=== PATIENT | female | born 1970 | race Caucasian/White ===

== ENCOUNTER 2018-02-05 19:49 | Emergency (ER) | payer OTHER, SELFPAY ==
[2018-02-05 19:50] VITALS: BP 143/81; PULSE 69; RESP 15; TEMP 36.4; O2SAT 96; BMI 32.3
--- NOTE | 2018-02-05 19:57 | EKG12_ITS ---
Test Reason : CP Blood Pressure : / mmHG Vent. Rate : 074 BPM Atrial Rate : 074 BPM P-R Int : 170 ms QRS Dur : 092 ms QT Int : 424 ms P-R-T Axes : 033 043 028 degrees QTc Int : 470 ms Poor data quality, interpretation may be adversely affected Sinus rhythm with sinus arrhythmia with occasional Premature ventricular complexes Possible Left atrial enlargement Low voltage QRS Borderline ECG Confirmed by KELLY NARANJO ([id number]), technical editor LEIF STEWART ([id number]) on 02/09/2018 2:23:00 PM Referred By: VALDO Confirmed By:KELLY NARANJO
--- NOTE | 2018-02-05 20:00 | ED.RN ---
NO OLD EKGS IN MUSE.
--- NOTE | 2018-02-05 20:17 | ED.DCSUM_ITS ---
- ER Visit Summary Date of Service: 02/05/18 Chief Complaint: Constant chest pain History of Present Illness: The patient is a 47 F history of reflux he is basically had constant chest pain for 2 weeks. Midsternal. No radiation. Worse is supine. Worse with eating. Not specifically associated with exertion. Over the last year she has put on about 25 pounds but has had normal thyroid test. She denies any cardiac history. No family history of cardiac disease. She is a non-smoker. Prior history of DVT or PE. No recent travel, surgery, mobilization. No leg pain or swelling. No hemoptysis. The chest pain is not pleuritic. Physical Examination: Well-appearing middle-age female. Vital signs are stable and afebrile. She does not look septic or toxic. She is in no acute distress. Her pulse ox is 96% on room air no hypoxia. H EENT exam unremarkable. Neck nontender no lymphadenopathy. No thyromegaly. Lungs clear to auscultation bilaterally. Heart regular rate and rhythm no murmur rate about 70. Chest wall nontender. Abdomen soft and nontender. Normal bowel sounds no peritoneal signs. She is moving all 4 extremities. They are neurovascularly intact. Calves are nontender without edema or cords. She is equal and symmetrical radial pulses. Back nontender. Neurologic exam normal. No focal motor deficits. Test Results: Portable chest x-ray 1 view shows normal cardiac silhouette and mediastinum. I went over this with patient. EKG normal sinus rhythm rate is 74 with some intermittent PVCs. No signs of [place] or ischemia. White count 8. Hemoglobin of 14. Electrolites unremarkable gap of 9 and creatinine of 0.8. Troponin is normal. Emergency Department Course and Treatment: She will undergo cardiac workup. Clinically with this being constant pain for 2 or supine with food I think is more likely associated with reflux. She will also be treated with a GI cocktail and Pepcid. Repeat exam at 2104 she is doing well. Feels much better to the medication. In light that her pain has been constant for 2 weeks associated with lengths of wine and eating with a completely normal EKG and troponin I do feel this is secondary to being reflux and noncardiac disease. She is low risk because she is a non-smoker and has no family history. She is not diabetic. Treatment Plan: Discharge home. Nexium for reflux. Disposition: Discharge Impression: Acute chest pain secondary to reflux This note was generated with [employer] dictation software. It may contain incorrect words, spelling, and punctuation that were not noted in review of the chart prior to signing ED Disposition - Plan for ED Patient: Chief Complaint: Chest Pain Referrals: Melvin Moses MD [Primary Care Provider] -
[2018-02-05] MEDS: Famotidine 20 MG Tablet 40 MG PO (20:25)
[2018-02-05] MEDS: Mag Hydrox/Al Hydrox/Simeth 30 ML UDC PO (20:25)
[2018-02-05 20:39] LABS: Absolute Lymphocyte Count 3.17 X10^3/ul (0.83-4.51); Absolute Neutrophil Count 4.2 X10^3/uL (2.0-7.7); Basophil# 0.03 X10^3/uL; Basophil% 0.4 % (0-1); Eosinophil# 0.08 X10^3/uL; Hematocrit 42.1 % (37-47); Hemoglobin 14.4 g/dl (12.0-15.0); Lymphocyte # 3.17 X10^3/ul (4.0); Lymphocyte % 38.7 % (19-41); Mean Corp Hgb Conc 34.2 g/gl (32-36); Mean Corpuscular Hgb 29.6 pg (27.0-32.0); Mean Corpuscular Volume 86.6 fL (81-99); Mean Platelet Vol. 11.7 fl (6.2-12.0); Monocyte# 0.68 X10^3/uL; Monocyte% 8.3 % (0-10); Neutrophil # 4.21 X10^3/uL (2.7-7.7); Neutrophil % 51.4 % (47-70); Platelet Count 224 K/mm3 (150-450); RBC Distribution Width SD 40.3 fl (35.1-43.9); Red Blood Count 4.86 M/mm3 (4.2-5.4); White Blood Count 8.2 K/mm3 (4.4-11.0)
[2018-02-05 20:41] LABS: POSITIVE COUNT NO; POSITIVE DIFFERENTIAL NO; POSITIVE MORPHOLOGY NO
[2018-02-05 20:54] LABS: Anion Gap 9 (5-15); BUN 14 mg/dL (7-18); BUN/Creat Ratio 16.9 RATIO (10-20); Calcium,Total 9.3 mg/dL (8.5-10.1); Chloride 105 mmol/L (98-107); Creatinine, Serum 0.83 mg/dL (0.55-1.02); EST Glomerular Filtration Rate 78 mL/min (>60); Est Glom Filt Rate - Afr Amer 94 mL/min (>60); Glucose 82 mg/dL (74-106); Potassium 3.4 mmol/L (3.5-5.1); Sodium Level 143 mmol/L (136-145)
[2018-02-05 21:06] VITALS: BP 127/86; PULSE 77; RESP 15; O2SAT 99
--- NOTE | 2018-02-05 21:17 | ED.DEP ---
ED Disposition - Plan for ED Patient: Disposition: Home or Assisted Living Chief Complaint: Chest Pain Instructions: ED GERD Prescriptions: Esomeprazole Mag Trihydrate [Nexium] 40 mg PO DAILY #30 cap Referrals: Melvin Moses MD [Primary Care Provider] - 1-2 Weeks Additional Instructions: History and labs and EKG all consistent with this being secondary to reflux. Your labs, EKG, chest x-ray and heart enzymes are all normal. Nexium 1 pill per day. Elevate head of bed. Do not eat with an 4 hours at bedtime. Follow-up with your doctor.
[2018-02-05 22:10] VITALS: BP 127/86; PULSE 63; RESP 16; O2SAT 95
== END 2018-02-05 22:11 | disposition home or self-care (01) ==
PROVIDERS: Emergency Provider Emergency Medicine; Family Provider Family Medicine; PCP Family Medicine
DX: K21.9 Gastro-esophageal reflux disease without esophagitis (principal); R07.9 Chest pain, unspecified; I49.3 Ventricular premature depolarization
CPT/HCPCS: 71045; 80048; 84484; 85025; 93005; 99284; A4216

== ENCOUNTER 2019-02-03 19:16 | Observation (INO) | payer OTHER, SELFPAY ==
[2019-02-03] VITALS (10 sets, daily range): BP systolic 107–165; BP diastolic 69–95; PULSE 47–90; RESP 14–18; TEMP 36.2–37.3; O2SAT 95–99; BMI 32.2; BMI 31.2
--- NOTE | 2019-02-03 14:00 | US_ITS ---
STUDY: ABDOMINAL ULTRASOUND - RIGHT UPPER QUADRANT REASON FOR VISIT: Female, 48 years old. Abdominal pain. TECHNIQUE: Ultrasound evaluation of the right upper quadrant was performed with real-time and static foster-scale imaging. TECHNICAL QUALITY: Adequate. COMPARISON: Comparison is made with prior CT scan abdomen pelvis done earlier in the day. FINDINGS: Liver: The liver measures 17.2 cm. There is increased echogenicity consistent with fatty infiltration. The bile ducts are within normal limits. There is hepatic color flow. The direction of portal flow is hepatopetal. There is no demonstrated mass lesion. Gallbladder: There is a contracted gallbladder. The gallbladder wall is thickened and measures 7.1 mm. There is a negative sonographic Dejesus's sign. There is no pericholecystic fluid. There are multiple echogenic structures within the gallbladder, consistent with multiple gallstones. Common Bile Duct (C.B.D.): The common bile duct measures 4.0 mm. Pancreas: There is nonvisualization of the pancreas due to overlying bowel gas. Right Kidney: Normal size of the right kidney. The right kidney measures 11.2 cm x 4.0 cm x 6.4 cm. Normal renal cortex. The right cortex measures 2.1 cm. There is no demonstrated renal mass or cyst. Dilatation of the right renal pelvis. US/Gallbladder IMPRESSION: There is a contracted stone filled gallbladder. Mild fatty infiltration of the liver. Electronically Signed: James Wan, at 15:30 EDT , Service support ,
--- NOTE | 2019-02-03 14:00 | CT_ITS ---
STUDY: CT ABDOMEN AND PELVIS WITHOUT CONTRAST REASON FOR EXAM: Female, 48 years old. Intermittent epigastric pain. RADIATION DOSAGE (If Supplied By Facility): CTDIvol = ( 15.28 ) mGy, DLP = ( 885.75 ) mGycm TECHNIQUE: Transaxial images were obtained from the dome of the diaphragm to the symphysis pubis without oral contrast, and without intravenous contrast. Sagittal and coronal images were reconstructed. Individualized dose optimization techniques were used for this CT. COMPARISON: None. FINDINGS: Minimal degree of dependent bibasilar atelectasis. The visualized portions of the heart are within normal limits. Normal liver. There are multiple small gallstones. Normal spleen. Normal pancreas. Normal bilateral adrenal glands. Mild degree of the right hydronephrosis. Normal left kidney. Normal visualized stomach. Normal small intestine. Normal colon. The appendix is visualized and appears normal. Normal abdominal aorta. Normal inferior vena cava. Normal retroperitoneum. Normal urinary bladder. Enlargement of the uterus. Normal abdominal wall. Normal osseous structures. CT/Abdomen/Pelvis without Cont IMPRESSION: Multiple small gallstones. Uterine enlargement. Electronically Signed: James Wan, at 15:04 EDT , Service support ,
[2019-02-03] MEDS: Ondansetron 4 MG/2 ML Vial IV (14:09)
[2019-02-03] MEDS: Famotidine 20 MG Tablet 40 MG PO (14:09)
[2019-02-03] MEDS: 0.9% Normal Saline 1,000 ML 1000 ML IV (14:09)
[2019-02-03 14:18] LABS: Absolute Lymphocyte Count 1.38 X10^3/uL (0.83-4.51); Absolute Neutrophil Count 6.1 X10^3/uL (2.0-7.7); Basophil# 0.03 X10^3/uL; Basophil% 0.4 % (0-1); Eosinophil# 0.03 X10^3/uL; Eosinophils% 0.4 % (0-5); Hematocrit 40.7 % (37-47); Hemoglobin 13.6 g/dL (12.0-15.0); Lymphocyte # 1.38 X10^3/ul (4.0); Lymphocyte % 16.8 % (19-41); Mean Corp Hgb Conc 33.4 g/dL (32-36); Mean Corpuscular Volume 86.8 fL (81-99); Mean Platelet Vol. 11.9 fl (6.2-12.0); Monocyte# 0.66 X10^3/uL; NRBC Flagged by Analyzer 0 % (0-5); Neutrophil # 6.09 X10^3/uL (2.7-7.7); Neutrophil % 74.2 % (47-70); Platelet Count 215 K/mm3 (150-450); RBC Distribution Width CV 14.9 % (11.6-14.6); RBC Distribution Width SD 46.7 fl (35.1-43.9); Red Blood Count 4.69 M/mm3 (4.2-5.4); White Blood Count 8.2 K/mm3 (4.4-11.0)
[2019-02-03 14:32] LABS: ALB/GLOB Ratio 0.9 RATIO (0.9-2.4); AST(SGOT) 224 U/L (15-37); Alanine Aminotransfer ALT/SGPT 511 U/L (13-56); Albumin, Serum 3.5 g/dL (3.2-5.0); Alkaline Phosphatase 288 U/L (45-117); Anion Gap 4 (5-15); BUN 9 mg/dL (7-18); BUN/Creat Ratio 11.4 RATIO (10-20); Calcium,Total 9.9 mg/dL (8.5-10.1); Chloride 105 mmol/L (98-107); Creatinine, Serum 0.79 mg/dL (0.55-1.02); EST Glomerular Filtration Rate 82 mL/min (>60); Est Glom Filt Rate - Afr Amer 100 mL/min (>60); Estimated Creatinine Clearance 80.64 ml/min; Globulin 4.1 g/dL (2.2-4.2); Glucose 102 mg/dL (74-106); Lipase 309 U/L (73-393); Potassium 3.6 mmol/L (3.5-5.1); Protein, Total 7.6 g/dL (6.4-8.2); Sodium Level 139 mmol/L (136-145)
--- NOTE | 2019-02-03 16:18 | RAD_ITS ---
STUDY: INTRAOPERATIVE CHOLANGIOGRAM. REASON FOR EXAM: Female, 48 years old. Laparoscopic cholecystectomy. FLUOROSCOPY TIME (if supplied): (0:16) minutes/seconds. A cine loop was recorded. TECHNIQUE: An intraoperative cholangiogram was performed by the surgeon. Imaging was submitted. COMPARISON: None. FINDINGS: The intrahepatic and extra hepatic biliary ducts are not dilated. No intraluminal filling defect is seen. There is free flow of contrast into the duodenum. RAD/Cholangiogram/ O R,Initial IMPRESSION: Unremarkable intraoperative cholangiogram. Electronically Signed: James Wan, at 8:57 EDT , Service support ,
--- NOTE | 2019-02-03 16:22 | PCM.HP.STD ---
Problem List (1) Cholelithiasis Status: Acute Qualifiers: Cholelithiasis location: gallbladder Cholecystitis presence: with cholecystitis Cholecystitis acuity: acute and chronic Biliary obstruction: with biliary obstruction Qualified Code(s): K80.13 - Calculus of gallbladder with acute and chronic cholecystitis with obstruction (2) Obstructive jaundice Status: Acute History of Present Illness Date of Admission: 02/03/19 The patient is a 48 year old F with epigastric pain. The patient reports that for the last week she has had on and off epigastric pain which just started. She says the episodes last for an hour or so. She does get nausea and vomiting. She denies any fevers or chills. She says since Thursday she has been itching a lot. Past Medical History Allergies Penicillins Allergy (Verified 02/03/19 13:37) Rash Home Medications: Ambulatory Orders Medication Instructions Recorded Omeprazole 40 mg PO DAILY PRN PRN 02/03/19 Surgical History: - - Bladder sling Smoking Status: Never smoker - *Family History Maternal History Items: No pertinent history Review of Systems Constitutional: Denies: Anorexia, Fever HEENT: Denies: Difficulty Swallowing Cardiovascular: Denies: Chest Pain Respiratory: Denies: Cough, Shortness of Breath Gastrointestinal: Reports: Abdominal Pain, Nausea, Vomiting. Denies: Constipation, Diarrhea, Hematemesis, Hematochezia, Melena Genitourinary: Denies: Dysuria Musculoskeletal: Denies: Joint Tenderness Skin: Reports: Jaundice, Pruritis. Denies: Rash Neurological: Denies: Balance problems Psychiatric: Denies: Depression Hematologic/ Lymphatic: Denies: Anemia VTE Information - Inpt Only VTE Present on Admission: No VTE Mechan Device Prophylaxis: SCD's Patient Problems: Active and Suspected Problems Cholelithiasis (Acute) Obstructive jaundice (Acute) - Physical Exam General: Alert, Oriented x3 Neck: No JVD Lungs: Normal air movement Cardiovascular: Regular rate, Regular Rhythm Abdomen: Soft, Non-Distended, Tender - Epigastric tenderness Extremities: No clubbing Skin: No rashes Musculoskeletal: No Muscle Wasting Neurological: Cranial nerves II-XII grossly intact Psych/Mental Status: Normal Affect Vital Signs Temp Pulse Resp BP Pulse Ox 97.6 F L 90 18 165/95 H 98 02/03/19 13:33 02/03/19 13:33 02/03/19 15:42 02/03/19 13:33 02/03/19 13:33 Oxygen Delivery Method Room Air Weight: 199 lb 11.821 oz Body Mass Index (BMI) 32.2 Laboratory Tests Past 24 Hrs 02/03/19 02/03/19 02/03/19 14:07 14:07 14:13 WBC 8.2 RBC 4.69 Hgb 13.6 Hct 40.7 MCV 86.8 MCH 29.0 MCHC 33.4 RDW Std Deviation 46.7 H RDW Coeff of Oscar 14.9 H Plt Count 215 MPV 11.9 Immature Gran % (Auto) 0.200 Neut % (Auto) 74.2 H Lymph % (Auto) 16.8 L [place] % (Auto) 8.0 Eos % (Auto) 0.4 Baso % (Auto) 0.4 Absolute Neuts (auto) 6.1 Absolute Lymphs (auto) 1.38 Nucleated RBC % 0 Sodium 139 Potassium 3.6 Chloride 105 Carbon Dioxide 30.0 Anion Gap 4 L BUN 9 Creatinine 0.79 Estim Creat Clear Calc 80.64 Est GFR (MDRD) Af Amer 100 Est GFR (MDRD) Non-Af 82 BUN/Creatinine Ratio 11.4 Glucose 102 Calcium 9.9 Total Bilirubin 3.20 H Direct Bilirubin 2.50 H AST 224 H ALT 511 H Alkaline Phosphatase 288 H Total Protein 7.6 Albumin 3.5 Globulin 4.1 Albumin/Globulin Ratio 0.9 Lipase 309 Clinical Impression(s) from Imaging Studies Abdomen/Pelvis CT 02/03/19 14:00 IMPRESSION: Multiple small gallstones. Uterine enlargement. Electronically Signed: James Wan, at 15:04 EDT , Service support , Gallbladder Ultrasound 02/03/19 14:00 IMPRESSION: There is a contracted stone filled gallbladder. Mild fatty infiltration of the liver. Electronically Signed: James Wan, at 15:30 EDT , Service support , Assessment/Plan All Active Problems Cholelithiasis (Acute) Obstructive jaundice (Acute) 48-year-old female with cholelithiasis and possibly obstructive jaundice 1. The patient has have epigastric pain episodes with nausea and vomiting for the last 2 weeks. She says that her last episode was overnight last night. She had a CT scan which showed multiple gallstones and an ultrasound which showed thickening of the gallbladder wall. The common bile duct diameter appears normal but she has elevated liver enzymes suggestive of obstructive jaundice. 2. I will give the patient Naderro Flagyl in the emergency room as she is allergic to penicillins. I discussed the case with the patient and her . I discussed the procedure in detail with the patient. I discussed the risks, benefits, and alternatives of the procedure. I discussed the risks including but not limited to bleeding, infection, injury to surrounding organs such as the liver, bile duct, bowels. I did discuss the possibility of having to convert to an open procedure as well as the possibility that if any injuries occurred this may necessitate further surgery at a tertiary care center. 3. If the patient is found to have obstructive gallstone in the common bile duct during cholangiogram I will take her for ERCP tomorrow. Donovan Romo MD Pager: [facility] [place] [facility] [address] [place] [address], [address] [place] [address] Office:
[2019-02-03] MEDS: Ciprofloxacin 400 MG/200 ML BAG 200 MG IV (16:25)
--- NOTE | 2019-02-03 16:30 | GALL_PTH ---
PATIENT: LISBET DODD LOC: MS3 U#:[id number] AGE/SX: 48/F ROOM: MS320 RE02/03/[address]: Dr. Donovan Romo MD : 1970 BED: 1 DIS: 02/04/2019 SPEC #: [id number] RECD: 02/04/19 07:15 STATUS: RUPERTO BILL #: [id number] ANABELL: 02/03/19 16:[address]: Donovan Romo DEPT: SURGICAL PATHOLOGY RECD BY: Moises Carr ENTERED: 02/04/19 08:42 SP TYPE: TOY COBURN DR: Dr. Melvin Moses MD Tissues: Gallbladder, NOS Procedures: Surgery Specimen Level III HEADER OPERATION: Laparoscopic cholecystectomy with IOC PRE-OP DIAGNOSIS: Cholelithiasis, obstructive jaundice TISSUE SUBMITTED: Gallbladder MICROSCOPIC DIAGNOSIS Gallbladder, cholecystectomy: Acute and chronic cholecystitis and cholelithiasis. AM:halle 02/07/19 MICROSCOPIC DESCRIPTION Slides are reviewed. GROSS DESCRIPTION Received is one container labeled with the patient's name and designated gallbladder. The specimen consists of a gallbladder measuring 8 cm in length and up to 3 cm in diameter. The gallbladder is previously partially opened. The external surface is pink-duncan, smooth and glistening for the most part. Focally it is granular, hemorrhagic and contains cautery artifact. The gallbladder contains a small amount of green-yellow mucoid bile. Present in the container and also in the gallbladder are multiple brownish-orange stones. The largest stone measures 2.5 cm in greatest dimension. The smaller stones measure in aggregate 3.8 x 3 x 1 cm and 0.3 to 1.5 cm in greatest dimension. The mucosa is bile-stained and without any mass lesions. The gallbladder wall measures up to 1 cm in thickness. Subserosal fat is noted. [employer] E[employer] Pusher sections from the gallbladder and the cystic duct are submitted in two cassettes. / SJ:halle 02/04/19 TC:2 CPT: 21229
--- NOTE | 2019-02-03 16:37 | ED.DCSUM_ITS ---
- ER Visit Summary Date of Service: 02/03/19 Chief Complaint: Abdominal pain History of Present Illness: The patient is a [address] Moses. She reports that she has intermittent abdominal pain that began naproxen 1 week ago. States pain the last 4 to 5 hours at a time. Last episode was at 12:30 AM. She reports that she last ate prior to that approximately 6:30 PM. She had sausage and mac & cheese. States that over the past week she has had 4 episodes. Patient reports that it is an intense epigastric pain that is 10 out of 10 at worst and she is pain-free currently. Is worsened by laying on her side. She is taking Tylenol and antacids with no relief. She reports that she has been nauseated. She has made herself vomit twice. There was no blood or emesis. No diarrhea. Her last bowel was today. No melena hematochezia. No dysuria or frequency. She denies any spicy or fatty food intolerance. Physical Examination: Vitals: Stable. Afebrile. General: Well-nourished and well-developed. Head: Normocephalic atraumatic. Neck: Supple, no lymphadenopathy. No JVD. Nontender. Cardiovascular: Regular rate and rhythm. No murmurs. Respiratory: No respiratory distress. Clear to auscultation bilaterally. Abdominal: Soft, nontender, nondistended, normal bowel sounds. No guarding, rebound, or peritoneal signs. Back: Nontender. Extremities: Nontender, no edema. Skin: Normal color, no rash. Neurologic: Alert and oriented ?3. Cranial nerves II through XII are intact. Normal strength and sensation. Psych: Normal affect. Test Results: CBC shows 7 neutrophils 74 lymphocytes 17. Chem-7 is normal. LFTs show total bili 3.2, direct bili 2.5, alk phos of 288, ALP of 511, AST of 224. Lipase is normal. Clinical Impression(s) from Imaging Studies Abdomen/Pelvis CT 02/03/19 14:00 IMPRESSION: Multiple small gallstones. Uterine enlargement. Electronically Signed: James Wan, at 15:04 EDT , Service support , Gallbladder Ultrasound 02/03/19 14:00 IMPRESSION: There is a contracted stone filled gallbladder. Mild fatty infiltration of the liver. Electronically Signed: James Tranjerry, at 15:30 EDT , Service support , Emergency Department Course and Treatment: Patient was given a dose of Pepcid, Cipro, and Flagyl IV. She refused pain and nausea medications. Treatment Plan: The patient was discussed with Dr. Romo. She will be admitted to the hospital for further evaluation and treatment. Disposition: Admitted in stable condition. Impression: 1. Cholelithiasis. 2. Obstructive jaundice. This note was generated with [email or web address] dictation software. It may contain incorrect words, spelling, and punctuation that were not noted in review of the chart prior to signing
[2019-02-03 16:50] LABS: Internal QC Validated? YES +Cl - CLEAR BKGD; Pregnancy, Urine Negative Negative
--- NOTE | 2019-02-03 17:25 | EKG12_ITS ---
Test Reason : PRE OP Blood Pressure : / mmHG Vent. Rate : 065 BPM Atrial Rate : 065 BPM P-R Int : 166 ms QRS Dur : 102 ms QT Int : 408 ms P-R-T Axes : 027 036 018 degrees QTc Int : 424 ms Normal sinus rhythm Normal ECG Confirmed by KELLY NARANJO ([id number]), story editor DEANNE LARA ([id number]) on 02/07/2019 2:55:50 PM Referred By: JENN Confirmed By:KELLY NARANJO
[2019-02-03] MEDS: metroNIDAZOLE 500 MG/100 ML BAG 100 MG IV (17:54)
[2019-02-03] MEDS: Bupiv/Epi 0.25% 30 ML Vial (19:05)
--- NOTE | 2019-02-03 19:17 | PCM.OPRPT ---
Problem List (1) Cholelithiasis Status: Acute Qualifiers: Cholelithiasis location: gallbladder Cholecystitis presence: with cholecystitis Cholecystitis acuity: acute and chronic Biliary obstruction: with biliary obstruction Qualified Code(s): K80.13 - Calculus of gallbladder with acute and chronic cholecystitis with obstruction (2) Obstructive jaundice Status: Acute Report of Operation Date of Procedure: 02/03/19 Pre-Operative Diagnosis: Obstructive jaundice and cholelithiasis Post-Operative Diagnosis: Same Surgery/Procedure Performed:: Laparoscopic cholecystectomy with cholangiogram Specimen's removed: Gallbladder and contents Description of Procedure: After obtaining informed consent patient was brought back to the operating room. General anesthesia was induced. The abdomen was prepped and draped in usual sterile fashion. A small midline incision was made superior to the umbilicus and deepened to the level of fascia. The fascia was elevated and incised. Next the peritoneum was elevated and incised in the same fashion. Finger sweep was performed and the Garza trocar was placed into the abdomen. The balloon was inflated. The abdomen was inflated to 15 mmHg. Next a camera was introduced into the abdomen and the abdomen was inspected. Next under direct visualization three 5-mm ports were placed one subxiphoid and 2 subcostal. Next the gallbladder was elevated and retracted toward the right shoulder. The peritoneum was stripped from the gallbladder. The infundibulum was located and retracted laterally. Next the triangle of Calot was dissected and the cystic duct and cystic artery were identified. Cholangiograms were performed. The Lockwood clamp was used to clamp across the infundibulum and the catheter needle was inserted into the gallbladder. Under fluoroscopy contrast was instilled into the gallbladder and the common duct, cystic duct as well as proximal hepatic ducts were identified. There was good filling of the duodenum. There were no filling defects noted in the common bile duct. The clamp was removed as well as the needle and the infundibulum was grasped once more. Three hemolock clips were placed across the cystic duct. The cystic duct was then divided leaving 2 clips on the stump. The cystic artery was clipped and divided in the same fashion. The hook cautery was then used to take the gallbladder off of the gallbladder bed. Hemostasis was obtained. Gallbladder fossa was irrigated and no active bleeding or bile leakage was noted. Next the camera switched to a 5 mm camera and introduced in the subxiphoid port. An Endopouch bag was placed through the umbilical port and the gallbladder was placed into it. The gallbladder was then removed through the umbilical incision. The camera was then reinserted through the umbilical port. The gallbladder fossa was inspected once more and noted to be hemostatic with no leaking bile. The abdomen was suctioned dry. The 5 mm ports were removed under direct visualization. The umbilical port was then removed and the air was removed from the abdomen. Next using an 0 Vicryl suture the umbilical fascia was closed in a [id number] fashion. The umbilical port site was irrigated local anesthetic was administered to all the incisions. All the incisions were closed with interrupted subcuticular 4-0 Monocryl sutures followed by Steri-Strips and dressings. The patient was awoken and taken to PACU in stable condition. - Admit VTE Documentation VTE Mechan Device Prophylaxis: SCD's
[2019-02-03] MEDS: Lactated Ringers 1,000 ML 100 ML IV (19:33)
[2019-02-03] MEDS: 0.9% Normal Saline 1,000 ML 100 ML IV (20:56)
--- NOTE | 2019-02-03 20:58 | CPS ---
SMI is sitting at bedside patient sleeping at this time.
[2019-02-04 00:17] VITALS: BP 134/79; PULSE 77; RESP 16; TEMP 36.8; O2SAT 95
[2019-02-04] MEDS: Morphine 2 MG/ML Syringe IV (00:32)
[2019-02-04 05:45] VITALS: BP 123/68; PULSE 59; RESP 16; TEMP 37.1; O2SAT 95
[2019-02-04] MEDS: 0.9% Normal Saline 1,000 ML 100 ML IV (05:51)
[2019-02-04 06:23] LABS: Absolute Lymphocyte Count 0.66 X10^3/uL (0.83-4.51); Absolute Neutrophil Count 6.8 X10^3/uL (2.0-7.7); Basophil# 0.01 X10^3/uL; Basophil% 0.1 % (0-1); Eosinophil# 0.15 X10^3/uL; Eosinophils% 1.8 % (0-5); Hematocrit 35.3 % (37-47); Hemoglobin 11.9 g/dL (12.0-15.0); Lymphocyte # 0.66 X10^3/ul (4.0); Lymphocyte % 8.1 % (19-41); Mean Corp Hgb Conc 33.7 g/dL (32-36); Mean Corpuscular Hgb 29.2 pg (27.0-32.0); Mean Corpuscular Volume 86.7 fL (81-99); Mean Platelet Vol. 12.2 fl (6.2-12.0); Monocyte# 0.47 X10^3/uL; Monocyte% 5.8 % (0-10); NRBC Flagged by Analyzer 0 % (0-5); Neutrophil # 6.82 X10^3/uL (2.7-7.7); Neutrophil % 83.8 % (47-70); POSITIVE MORPHOLOGY YES; Platelet Count 191 K/mm3 (150-450); RBC Distribution Width CV 15.1 % (11.6-14.6); RBC Distribution Width SD 47.2 fl (35.1-43.9); Red Blood Count 4.07 M/mm3 (4.2-5.4); White Blood Count 8.1 K/mm3 (4.4-11.0)
[2019-02-04 06:25] LABS: Differential Indicated SCAN CRITERIA MET
[2019-02-04 07:00] LABS: Differential Comment SCANNED
[2019-02-04 07:25] LABS: ALB/GLOB Ratio 0.8 RATIO (0.9-2.4); AST(SGOT) 185 U/L (15-37); Alanine Aminotransfer ALT/SGPT 426 U/L (13-56); Albumin, Serum 2.7 g/dL (3.2-5.0); Alkaline Phosphatase 235 U/L (45-117); Anion Gap 9 (5-15); BUN 10 mg/dL (7-18); BUN/Creat Ratio 14.6 RATIO (10-20); Chloride 108 mmol/L (98-107); Creatinine, Serum 0.68 mg/dL (0.55-1.02); EST Glomerular Filtration Rate 97 mL/min (>60); Est Glom Filt Rate - Afr Amer 117 mL/min (>60); Estimated Creatinine Clearance 97.32 ml/min; Globulin 3.4 g/dL (2.2-4.2); Glucose 118 mg/dL (74-106); Potassium 3.8 mmol/L (3.5-5.1); Protein, Total 6.1 g/dL (6.4-8.2); Sodium Level 141 mmol/L (136-145)
[2019-02-04 09:05] VITALS: BP 139/76; PULSE 68; RESP 16; TEMP 37; O2SAT 94
--- NOTE | 2019-02-04 09:09 | PN.SURG_ITS ---
Patient Problems: Active and Suspected Problems Cholelithiasis (Acute) Obstructive jaundice (Acute) Subjective: Patient is doing well this morning with no nausea or vomiting and tolerating a regular diet. - Physical Exam General: Alert, Oriented x3 Lungs: Normal air movement Cardiovascular: Regular rate, Regular Rhythm Abdomen: Soft, Non-Distended, Tender - Appropriate incisional tenderness Vital Signs Temp Pulse Resp BP Pulse Ox 98.8 F 59 L 16 123/68 H 95 02/04/19 05:45 02/04/19 05:45 02/04/19 05:45 02/04/19 05:45 02/04/19 05:45 Oxygen Flow Rate (L/min) 2 Oxygen Delivery Method Room Air Weight: 199 lb 11.821 oz Body Mass Index (BMI) 31.2 Intake and Output for Last 24 Hours 02/02/19 02/03/19 02/04/19 23:59 23:59 23:59 Intake Total 1441.67 / 1491.67 1741.67 / 1741.67 Output Total 275 / 275 Balance 1441.67 / 1491.67 1466.67 / 1466.67 Laboratory Tests Past 24 Hrs 02/03/19 02/03/19 02/03/19 14:07 14:07 14:07 WBC 8.2 RBC 4.69 Hgb 13.6 Hct 40.7 MCV 86.8 MCH 29.0 MCHC 33.4 RDW Std Deviation 46.7 H RDW Coeff of Oscar 14.9 H Plt Count 215 MPV 11.9 Immature Gran % (Auto) 0.200 Neut % (Auto) 74.2 H Lymph % (Auto) 16.8 L Prentiss % (Auto) 8.0 Eos % (Auto) 0.4 Baso % (Auto) 0.4 Absolute Neuts (auto) 6.1 Absolute Lymphs (auto) 1.38 Nucleated RBC % 0 Differential Comment Sodium 139 Potassium 3.6 Chloride 105 Carbon Dioxide 30.0 Anion Gap 4 L BUN 9 Creatinine 0.79 Estim Creat Clear Calc 80.64 Est GFR (MDRD) Af Amer 100 Est GFR (MDRD) Non-Af 82 BUN/Creatinine Ratio 11.4 Glucose 102 Calcium 9.9 Total Bilirubin 3.20 H Direct Bilirubin AST 224 H ALT 511 H Alkaline Phosphatase 288 H Total Protein 7.6 Albumin 3.5 Globulin 4.1 Albumin/Globulin Ratio 0.9 Lipase 309 Urine Test Negative 02/03/19 02/04/19 02/04/19 14:13 05:53 05:53 WBC 8.1 RBC 4.07 L Hgb 11.9 L Hct 35.3 L MCV 86.7 MCH 29.2 MCHC 33.7 RDW Std Deviation 47.2 H RDW Coeff of Oscar 15.1 H Plt Count 191 MPV 12.2 H Immature Gran % (Auto) 0.400 Neut % (Auto) 83.8 H Lymph % (Auto) 8.1 L Prentiss % (Auto) 5.8 Eos % (Auto) 1.8 Baso % (Auto) 0.1 Absolute Neuts (auto) 6.8 Absolute Lymphs (auto) 0.66 L Nucleated RBC % 0 Differential Comment SCANNED Sodium 141 Potassium 3.8 Chloride 108 H Carbon Dioxide 24.0 Anion Gap 9 BUN 10 Creatinine 0.68 Estim Creat Clear Calc 97.32 Est GFR (MDRD) Af Amer 117 Est GFR (MDRD) Non-Af 97 BUN/Creatinine Ratio 14.6 Glucose 118 H Calcium 8.0 L Total Bilirubin 1.10 H Direct Bilirubin 2.50 H AST 185 H ALT 426 H Alkaline Phosphatase 235 H Total Protein 6.1 L Albumin 2.7 L Globulin 3.4 Albumin/Globulin Ratio 0.8 L Lipase Urine Test Medical Necessity - Tobacco Use Smoking Status: Never smoker Tobacco Use: Non-smoker Assessment/Plan All Active Problems Cholelithiasis (Acute) Obstructive jaundice (Acute) 48-year-old female status post laparoscopic cholecystectomy 1. Patient is doing well this morning and her LFTs are decreasing. Discharge home this afternoon. Follow-up in 2 weeks. Donovan Romo MD Pager: [phone] [address] [place] [address], [address] [place] [address] Office:
--- NOTE | 2019-02-04 09:10 | DCINST_ITS ---
Discharge Diet: Light diet - advance as tolerated Discharge Activity: Return to Normal Activity, May Not Drive - for 2-3 days or while taking narcotic pain medicataions., May Shower May shower in (days): 1 - with the bandage in place. Additional Activity Instructions:: Pain medication may cause nausea. You should typically eat light foods as you take your pain medications. Pain medication may also cause constipation. If this is a problem for you, please discuss with your doctor. Call your doctor if your incision/area has: Continuous Slow Oozing, Sudden Increased Bleeding, Increased Pain/ Swelling, Increased Redness, Foul Smelling Discharge, Fever of 101 or Higher Call your doctor if you observe: Fever of 101 or Higher Suture Line Care: Avoid Pulling/Pushing, Avoid Pinching/Bending Additional Dressing/Incision Instructions:: Leave operative bandaids on for 2 days. When you remove dressing, leave Steri-Strips on until your follow-up appointment, or until the Steri-Strips fall off on their own. Allergies/Adverse Reactions: Allergies Penicillins Allergy (Verified 02/03/19 17:04) Rash Medications to take at Discharge Omeprazole 40 mg PO DAILY PRN PRN 02/03/19 Docusate Sodium [Colace] 100 mg PO BID 5 Days #10 cap 02/04/19 Oxycodone [Oxyir] 5 - 10 mg PO Q4H PRN PRN 4 Days #20 tab 02/04/19 The following prescriptions were given: Docusate Sodium [Colace] 100 mg PO BID 5 Days #10 cap Transmission Status: Pending to [id number] Oxycodone [Oxyir] 5 - 10 mg PO Q4H PRN PRN 4 Days #20 tab PRN Reason: Severe Pain (-03/10) Transmission Status: Received by [id number] Primary Care Physician: Melvin Moses MD [Primary Care Provider] - Test Results: Test results from this visit will be discussed in further detail at your follow- up appointment, if applicable. Please Follow Up With: Donovan Romo MD When: Please call to schedule 2 week follow up appointment. [phone]
[2019-02-04] MEDS: Docusate Sodium 100 MG Capsule PO (09:16)
[2019-02-04 12:15] VITALS: BP 133/71; PULSE 75; RESP 16; TEMP 36.8; O2SAT 96
== END 2019-02-04 12:37 | disposition home or self-care (01) ==
LOC: ED 20:03 → MS3 20:03
PROVIDERS: Admitting Provider Surgery; Emergency Provider Emergency Medicine; Family Provider Family Medicine; PCP Family Medicine; Visit Provider Surgery
PROC: (CPT 47610; principal; 2019-02-03 16:10)
DX: K80.13 Calculus of gallbladder with acute and chronic cholecystitis with obstruction (principal)
CPT/HCPCS: 47563; 36415; 74176; 74300; 76000; 76705; 80053; 81025; 82248; 83690; 85025; 88304; 93005; 96361; 96374; 96375; 99218; 99284; J7030; J7120; A4216; G0378; J0744; J2405

== ENCOUNTER 2020-05-18 11:11 | Observation (INO) | payer OTHER, SELFPAY ==
[2019-02-03 16:53] VITALS: BMI 31.2
[2020-05-18 11:15] VITALS: BP 155/99; PULSE 59; RESP 16; TEMP 36.5; O2SAT 99; BMI 33.8
--- NOTE | 2020-05-18 11:39 | ED.VISSUMM ---
- ER Visit Summary Date of Service: 05/18/20 Chief Complaint: Dizziness History of Present Illness: The patient is a 49 F who presents with dizziness that began this morning. Patient states she has a history of vertigo and this feels similar to prior episodes of vertigo. Patient describes her dizziness as a spinning sensation. Patient states it is worse with any movement of her head. Patient states that it is better when she keeps her head still. Patient denies any hearing changes or ear pain. Patient denies any headaches. Patient admits to some nausea and vomiting. Patient states she was hospitalized 3 years ago with similar symptoms. Physical Examination: Vital signs are stable. Patient is afebrile. Patient is in no acute distress. Pupils are equal, round, and reactive to light bilaterally. Extraocular muscles are intact. There is nystagmus noted with lateral gaze. Oral mucosa is pink and moist. Neck is supple. Trachea is midline. There is no JVD. Heart was regular rate and rhythm. Lungs are clear and equal bilaterally. Abdomen is soft. Bowel sounds are normal. There is no tenderness. Cranial nerves II through XII are intact. There are no focal motor or sensory deficits. Emergency Department Course and Treatment: Patient was given IV fluids. Patient was given a dose of Valium and Zofran. Patient was still dizzy on reevaluation. Patient was given a repeat dose of Valium. Patient was given a dose of meclizine. Patient had minimal improvement with this. Patient was given a repeat dose of Valium. Case was discussed with the hospitalist. She will admit the patient for observation. Patient and family understand and are agreeable with the plan. All questions were answered. Disposition: Admit for observation Impression: 1. Intractable vertigo This note was generated with Memorandomation software. It may contain incorrect words, spelling, and punctuation that were not noted in review of the chart prior to signing ED Disposition - Plan for ED Patient: Disposition: Acute Care Hospital [facility] Diagnosis: Vertigo Referrals: Melvin Moses MD [Primary Care Provider] -
[2020-05-18] MEDS: 0.9% Normal Saline 1,000 ML 1000 ML IV (12:38)
[2020-05-18] MEDS: Ondansetron 4 MG/2 ML Vial IV ×2 (12:39→16:44)
[2020-05-18] MEDS: diazePAM 5 MG Tablet 2.5 MG PO ×3 (12:50→16:02)
[2020-05-18] MEDS: Meclizine HCl 25 MG Tablet PO ×3 (14:13→23:14)
[2020-05-18 14:35] VITALS: BP 98/62
--- NOTE | 2020-05-18 15:35 | PCM.HP.STD ---
Problem List (1) Vertigo Status: Acute (2) GERD (gastroesophageal reflux disease) Status: Chronic Qualifiers: Esophagitis presence: esophagitis presence not specified Qualified Code(s): K21.9 - Gastro-esophageal reflux disease without esophagitis (3) BPPV (benign paroxysmal positional vertigo) Status: Chronic Qualifiers: Laterality: unspecified laterality Qualified Code(s): H81.10 - Benign paroxysmal vertigo, unspecified ear (4) Obesity Status: Chronic Qualifiers: Obesity type: due to excess calories Obesity classification: adult class 1 (BMI 30 - 34.9) Serious obesity comorbidity presence: unspecified whether serious comorbidity present Body mass index: BMI 33.0-33.9 Qualified Code(s): E66.09 - Other obesity due to excess calories; Z68.33 - Body mass index [BMI] 33.0-33.9, adult History of Present Illness Date of Admission: 05/18/20 Chief Complaint: Vertigo, intractable The patient is a 49 y/o F w/ PMHx: BPPV, GERD, Obesity who presents to the [facility] ED on 05/18/10 with onset severe vertigo, similar to prior, onset this AM, room spinning sensation, not improving with associated nausea and emesis prompting eventual ED evaluation. Patient did have visualized nystagmus per her spouse and states this happened the last time. She notes last time she had been hospitalized secondary to the severity and did receive meclizine then with eventual improvement. In the ED patient with noted nystagmus and patient unable able to have [place]ks[place]-Hallpike maneuver performed secondary to severity of her symptoms currently. Work-up in the ED included T 97.7, heart rate 78, BP 155/99, respiratory rate 16, 99% on room air, no labs were obtained per the ED, no imaging was obtained per the ED. In the ED patient ministered Zofran, meclizine and Valium, several doses. Past Medical History Past Medical History (Chronic Problems): Chronic Problems GERD (gastroesophageal reflux disease) (Chronic) BPPV (benign paroxysmal positional vertigo) (Chronic) Obesity (Chronic) Allergies Penicillins Allergy (Verified 05/18/20 11:17) Rash Home Medications: Ambulatory Orders Medication Instructions Recorded Omeprazole 40 mg PO DAILY PRN PRN 02/03/19 Surgical History: - - Bladder sling surgery x3, cholecystectomy, bilateral tubal ligation. 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 Paternal History Items: Diabetes, Hypertension Review of Systems Constitutional: Reports: Anorexia, Malaise, Weakness, Fatigue. Denies: Chills, Fever, Weight Change HEENT: Reports: - - Lateral gaze nystagmus.. Denies: Head Aches, Sinus Congestion, Sinus Drainage Cardiovascular: Denies: Chest Pain, Palpitations Respiratory: Denies: Cough, Shortness of breath at rest, Sputum production Gastrointestinal: Reports: Nausea, Vomiting. Denies: Abdominal Pain Genitourinary: Denies: Dysuria Musculoskeletal: Denies: Joint Pain, Joint Tenderness Skin: Denies: Rash, Wounds Neurological: Reports: - - Vertigo.. Denies: Focal weakness, Numbness, Tingling Psychiatric: Denies: Anxiety, Depression, Homicidal Ideations, Suicidal Ideations Hematologic/ Lymphatic: Denies: Easy Bruising, Easy Bleeding VTE Information - Inpt Only VTE Present on Admission: No VTE Mechan Device Prophylaxis: None VTE Pharm Prophylaxis ordered?: No Reason prophylaxis not ordered:: Treatment Not Indicated Patient Problems: Active and Suspected Problems Vertigo (Acute) Subjective: Patient laying in the ED bed, lights off initially, notes with any attempted movement she has significant recurrent vertiginous symptoms with nausea. Objective: Physical Examination: General: awake, alert, oriented x 3 and cooperative, laying in the ED bed, ongoing vertiginous symptoms, primarily when she opens her eyes with ongoing nystagmus, declined attempted [place]-Hallpike maneuver secondary to severity of her symptoms. Skin: normal color, turgor, no icterus, cyanosis. HEENT: AT/NC, unable to perform extraocular movement assessment given ongoing significant lateral gaze nystagmus and severity of onset symptoms with continued eye open status, PERRLA, dry MM, no carotid bruits or JVD noted. Lungs: CTA bilaterally, moderate effort, mild decrease BL bases, no rales, ronchi or wheezing. Heart: Regular rate and rhythm; no gallop, rub audible. Abdomen: soft, obese, NTTP, ND, normal BS, no HSM. Extremities: no cyanosis, clubbing, or edema. Neurological: patient awake, alert, oriented as noted; cognitive function intact; pupils equally reactive to light and accomodation however difficult examination as patient with significant worsened symptoms with eye open status, cranial nerves appeal normal except noted lateral nystagmus, moving all extremities, strength severely global decrease secondary to acute presentation. Psychiatric: affect appears fatigued, ill-appearing, no acute evidence of depressive or anxiety feelings. - Physical Exam Vitals/I&O's: Vital Signs Temp Pulse Resp BP Pulse Ox 97.7 F L 59 L 16 98/62 99 05/18/20 11:15 05/18/20 11:15 05/18/20 11:15 05/18/20 14:35 05/18/20 11:15 Oxygen Delivery Method Room Air Weight: 209 lb 10.554 oz Body Mass Index (BMI) 33.8 Intake and Output for Last 24 Hours 05/16/20 05/17/20 05/18/20 23:59 23:59 23:59 Intake Total 1000 / 1000 Balance 1000 / 1000 Assessment/Plan All Active Problems Cholelithiasis (Acute) Obstructive jaundice (Acute) Vertigo (Acute) The patient is a 49 y/o F w/ PMHx: BPPV, GERD, Obesity who presents to the [facility] ED on 05/18/10 with onset severe vertigo, similar to prior, onset this AM, room spinning sensation, not improving with associated nausea and emesis prompting eventual ED evaluation. 1. Acute vertigo, suspect benign positional vertigo: Will admit to MS given similar to prior, visualized nystagmus on evaluation, continue hydration, allow clears with ADAT once improving, maintain on fall precautions, continue treatment with scheduled meclizine, PRN antiemetics with alterations as needed, if not clinically improving by repeat assessment in a.m. may need to consider imaging. Will request PT involvement for a.m. to assist if potential need for vestibular therapy. 2. Elevated BP without hypertensive diagnosis: Elevated BP in the ED, likely secondary to acute presentation, will continue to monitor, add oral regimen if becomes appropriate, as needed IV hydralazine in interim. 3. Obesity: Weight loss and lifestyle changes encouraged. 4. GERD: We will continue patient home omeprazole. 5. DVT prophylaxis: Low risk, once clinically improving encourage ambulation. OBSV E&M: [id number] Initial observation care L2
[2020-05-18 15:52] VITALS: BMI 33.8
[2020-05-18 16:05] VITALS: BP 184/88; PULSE 78; RESP 14; TEMP 37.1; O2SAT 100
[2020-05-18 16:21] VITALS: BMI 29.5
[2020-05-18 17:02] VITALS: BP 137/86; PULSE 65; RESP 18; TEMP 36.9; O2SAT 100
[2020-05-18] MEDS: 0.9% Normal Saline 1,000 ML 125 ML IV (17:21)
[2020-05-18] MEDS: proCHLORPERazine 10 MG/2 ML Vial 5 MG IV (17:24)
[2020-05-18] MEDS: 0.9% Saline Lock 10 ML Syringe IV (17:25)
--- NOTE | 2020-05-18 17:52 | PCS.PANDOC ---
PANDEMIC DOCUMENTATION INITIATED: Date: 05/18/20 Time: 2231
[2020-05-18 18:15] LABS: Absolute Lymphocyte Count 0.96 X10^3/uL (0.83-4.51); Absolute Neutrophil Count 9.3 X10^3/uL (2.0-7.7); Basophil# 0.02 X10^3/uL; Basophil% 0.2 % (0-1); Hematocrit 39.4 % (37-47); Hemoglobin 13.3 g/dL (12.0-15.0); Lymphocyte # 0.96 X10^3/ul (4.0); Lymphocyte % 9.1 % (19-41); Mean Corp Hgb Conc 33.8 g/dL (32-36); Mean Corpuscular Hgb 29.3 pg (27.0-32.0); Mean Corpuscular Volume 86.8 fL (81-99); Mean Platelet Vol. 11.6 fl (6.2-12.0); Monocyte% 2.8 % (0-10); NRBC Flagged by Analyzer 0 % (0-5); Neutrophil # 9.28 X10^3/uL (2.7-7.7); Neutrophil % 87.6 % (47-70); Platelet Count 194 K/mm3 (150-450); RBC Distribution Width CV 12.9 % (11.6-14.6); RBC Distribution Width SD 40.6 fl (35.1-43.9); Red Blood Count 4.54 M/mm3 (4.2-5.4); White Blood Count 10.6 K/mm3 (4.4-11.0)
[2020-05-18 18:34] LABS: AST(SGOT) 12 U/L (15-37); Alanine Aminotransfer ALT/SGPT 26 U/L (13-56); Albumin, Serum 3.5 g/dL (3.2-5.0); Alkaline Phosphatase 76 U/L (45-117); Anion Gap 6 (5-15); BUN 13 mg/dL (7-18); BUN/Creat Ratio 18.9 RATIO (10-20); Calcium,Total 8.5 mg/dL (8.5-10.1); Chloride 108 mmol/L (98-107); Creatinine, Serum 0.69 mg/dL (0.55-1.02); EST Glomerular Filtration Rate 96 mL/min (>60); Est Glom Filt Rate - Afr Amer 116 mL/min (>60); Estimated Creatinine Clearance 91.31 ml/min; Globulin 3.5 g/dL (2.2-4.2); Glucose 101 mg/dL (74-106); Potassium 3.8 mmol/L (3.5-5.1); Sodium Level 140 mmol/L (136-145)
[2020-05-18 20:00] VITALS: O2SAT 99
[2020-05-18 23:11] VITALS: BP 106/50; PULSE 69; RESP 18; TEMP 36.8; O2SAT 97
[2020-05-19] MEDS: 0.9% Normal Saline 1,000 ML 125 ML IV ×2 (01:27→09:34)
[2020-05-19 05:49] VITALS: BP 102/58; PULSE 79; RESP 18; TEMP 36.9; O2SAT 93
[2020-05-19] MEDS: Meclizine HCl 25 MG Tablet PO ×2 (05:51→11:30)
[2020-05-19 07:12] LABS: Absolute Lymphocyte Count 2.39 X10^3/uL (0.83-4.51); Absolute Neutrophil Count 5.5 X10^3/uL (2.0-7.7); Basophil# 0.02 X10^3/uL; Basophil% 0.2 % (0-1); Eosinophil# 0.02 X10^3/uL; Eosinophils% 0.2 % (0-5); Hematocrit 37.2 % (37-47); Hemoglobin 12.1 g/dL (12.0-15.0); Lymphocyte # 2.39 X10^3/ul (4.0); Lymphocyte % 27.8 % (19-41); Mean Corp Hgb Conc 32.5 g/dL (32-36); Mean Corpuscular Hgb 28.5 pg (27.0-32.0); Mean Corpuscular Volume 87.7 fL (81-99); Mean Platelet Vol. 11.7 fl (6.2-12.0); Monocyte# 0.71 X10^3/uL; Monocyte% 8.2 % (0-10); NRBC Flagged by Analyzer 0 % (0-5); Neutrophil # 5.45 X10^3/uL (2.7-7.7); Neutrophil % 63.4 % (47-70); Platelet Count 194 K/mm3 (150-450); RBC Distribution Width CV 13.2 % (11.6-14.6); RBC Distribution Width SD 42.2 fl (35.1-43.9); Red Blood Count 4.24 M/mm3 (4.2-5.4); White Blood Count 8.6 K/mm3 (4.4-11.0)
[2020-05-19 07:20] VITALS: O2SAT 93
[2020-05-19 07:48] LABS: AST(SGOT) 12 U/L (15-37); Alanine Aminotransfer ALT/SGPT 24 U/L (13-56); Alkaline Phosphatase 65 U/L (45-117); Anion Gap 5 (5-15); BUN 11 mg/dL (7-18); BUN/Creat Ratio 14.6 RATIO (10-20); Chloride 111 mmol/L (98-107); Creatinine, Serum 0.76 mg/dL (0.55-1.02); EST Glomerular Filtration Rate 86 mL/min (>60); Est Glom Filt Rate - Afr Amer 104 mL/min (>60); Estimated Creatinine Clearance 81.98 ml/min; Globulin 3.1 g/dL (2.2-4.2); Glucose 78 mg/dL (74-106); Potassium 3.3 mmol/L (3.5-5.1); Protein, Total 6.1 g/dL (6.4-8.2); Sodium Level 140 mmol/L (136-145)
[2020-05-19 08:10] VITALS: BP 140/78; PULSE 90; RESP 18; TEMP 36.7; O2SAT 95
--- NOTE | 2020-05-19 09:13 | DCINST_ITS ---
- Discharge Diagnoses Current Active Problems: Current Active and Chronic Problems Vertigo (Acute) GERD (gastroesophageal reflux disease) (Chronic) BPPV (benign paroxysmal positional vertigo) (Chronic) Obesity (Chronic) You will use the following diet at home:: No restrictions Discharge Activity: Return to Normal Activity Call your doctor if you observe: Shortness of breath, Dizziness, Fainting spells, Chest pain Allergies/Adverse Reactions: Allergies Penicillins Allergy (Verified 05/18/20 11:17) Rash Medications to take at Discharge Omeprazole 40 mg PO DAILY PRN PRN 02/03/19 Meclizine HCl [Antivert] 25 mg PO Q6 PRN #30 tab 05/19/20 Ondansetron HCl [Zofran] 4 mg PO Q8H PRN #20 tab 05/19/20 The following prescriptions were given: Meclizine HCl [Antivert] 25 mg PO Q6 PRN #30 tab PRN Reason: Vertigo Transmission Status: [id number] Ondansetron HCl [Zofran] 4 mg PO Q8H PRN #20 tab PRN Reason: Nausea Transmission Status: P[facility] to [id number] Primary Care Physician: Melvin Moses MD [Primary Care Provider] - Please follow up with your Primary Care Physician in: 1 Week Test Results: Test results from this visit will be discussed in further detail at your follow- up appointment, if applicable. Proposed Discharge Date: 05/19/20
--- NOTE | 2020-05-19 09:15 | DS.PCM_ITS ---
<Amelia Zamora [employer] APPRENTICE - Last Filed: 05/19/20 09:22> Discharge Date and Diagnosis - Problem List Patient Problems: Active and Suspected Problems Vertigo (Acute) Date of Admission: 05/18/20 Date of Discharge: 05/19/20 - Primary Discharge Diagnosis Acute Problems: Active Problems 1. Acute vertigo, BPPV 2. Obesity 3. GERD - Secondary Discharge Diagnosis Chronic Problems: Chronic Problems GERD (gastroesophageal reflux disease) (Chronic) BPPV (benign paroxysmal positional vertigo) (Chronic) Obesity (Chronic) Hospital Course and Treatment Operations: None Procedures: None Summary of Care Provided: The patient is a 50 year old F admitted 05/18/2020 due to vertigo. 1. Acute vertigo, BPPV-patient reports previous episode 3 years ago. She states she was in formerly [facility] at that time and received work-up including MRI of brain which was found to be unremarkable. Vertigo symptoms improved with meclizine. Continue as needed meclizine and as needed Zofran at discharge. Patient has been seen by ENT in the past as well. She states she knows how to perform vestibular therapy at home. Follow-up with PCP in 1 week. 2. Obesity- encouraged diet and lifestyle modifications. 3. GERD- on PPI. Patient seen and examined prior to discharge. Physical assessment as noted below. Patient is stable for discharge with follow up recommendations as noted above. This patient was seen by LEEANNA BranchC under the supervision of Dr. Winters. Patient Problems: Active and Suspected Problems Vertigo (Acute) - Physical Exam Vitals/I&O's: Vital Signs Temp Pulse Resp BP Pulse Ox 98.1 F 90 18 140/78 H 95 05/19/20 08:10 05/19/20 08:10 05/19/20 08:10 05/19/20 08:10 05/19/20 08:10 Oxygen Delivery Method Room Air Weight: 182 lb 15.739 oz Body Mass Index (BMI) 29.5 Intake and Output for Last 24 Hours 05/17/20 05/18/20 05/19/20 23:59 23:59 23:59 Intake Total 1200 / 1200 1240 / 1240 Output Total 0 / 0 500 / 500 Balance 1200 / 1200 740 / 740 General: Alert, Oriented x3, Cooperative HEENT: Atraumatic, PERRLA, EOMI, Normocephalic Neck: Supple, No JVD, Negative Carotid Bruits Lungs: Clear to auscultation, Normal air movement Cardiovascular: Regular rate, No murmurs Abdomen: Bowel Sounds Present, Soft, Non Tender, Non-Distended Extremities: No clubbing, No cyanosis, No edema, Capillary Refill Less than 3 Seconds Skin: No rashes, No breakdown Musculoskeletal: No Tenderness to Palpation of Joints or Extremities Neurological: Cranial nerves II-XII grossly intact, Neuro grossly intact Psych/Mental Status: Normal Affect, Appropriate Laboratory Results 05/18/20 17:59: WBC 10.6, RBC 4.54, Hgb 13.3, Hct 39.4, MCV 86.8, MCH 29.3, MCHC 33.8, RDW Std Deviation 40.6, RDW Coeff of Oscar 12.9, Plt Count 194, MPV 11.6, Immature Gran % (Auto) 0.300, Neut % (Auto) 87.6 H, Lymph % (Auto) 9.1 L, [place] % (Auto) 2.8, Eos % (Auto) 0.0, Baso % (Auto) 0.2, Absolute Neuts (auto) 9.3 H, Absolute Lymphs (auto) 0.96, Nucleated RBC % 0 05/18/20 17:59: Sodium 140, Potassium 3.8, Chloride 108 H, Carbon Dioxide 26.0, Anion Gap 6, BUN 13, Creatinine 0.69, Estim Creat Clear Calc 91.31, Est GFR (MDRD) Af Amer 116, Est GFR (MDRD) Non-Af 96, BUN/Creatinine Ratio 18.9, Glucose 101, Calcium 8.5, Total Bilirubin 0.40, AST 12 L, ALT 26, Alkaline Phosphatase 76, Total Protein 7.0, Albumin 3.5, Globulin 3.5, Albumin/Globulin Ratio 1.0 05/19/20 06:24: WBC 8.6, RBC 4.24, Hgb 12.1, Hct 37.2, MCV 87.7, MCH 28.5, MCHC 32.5, RDW Std Deviation 42.2, RDW Coeff of Oscar 13.2, Plt Count 194, MPV 11.7, Im mature Gran % (Auto) 0.200, Neut % (Auto) 63.4, Lymph % (Auto) 27.8, [place] % (Auto) 8.2, Eos % (Auto) 0.2, Baso % (Auto) 0.2, Absolute Neuts (auto) 5.5, Absolute Lymphs (auto) 2.39, Nucleated RBC % 0 05/19/20 06:24: Sodium 140, Potassium 3.3 L, Chloride 111 H, Carbon Dioxide 24.0, Anion Gap 5, BUN 11, Creatinine 0.76, Estim Creat Clear Calc 81.98, Est GFR (MDRD) Af Amer 104, Est GFR (MDRD) Non-Af 86, BUN/Creatinine Ratio 14.6, Glucose 78, Calcium 8.0 L, Total Bilirubin 0.50, AST 12 L, ALT 24, Alkaline Phosphatase 65, Total Protein 6.1 L, Albumin 3.0 L, Globulin 3.1, Albumin/Globulin Ratio 1.0 Current Medications Acetaminophen (Acetaminophen 325 Mg Tablet) 650 mg PO Q6H PRN PRN PRN Reason: Pain Score 1-10/Temp > 100.7 F Al Hydroxide/Mg Hydroxide (Mag Hydrox/Al Hydrox/Simeth 30 Ml Udc) 30 ml PO Q6H PRN PRN PRN Reason: Gastric Burning Albuterol Sulfate (Albuterol 2.5 Mg/3 Ml Vial.Neb.) 2.5 mg INHALATION Q2H PRN PRN PRN Reason: Dyspnea, wheezing Guaifenesin (Guaifenesin 10 Ml Udc (200mg/10ml)) 20 ml PO Q4H PRN PRN PRN Reason: COUGH Hydralazine HCl (Hydralazine 20 Mg/Ml Vial) 10 mg IV Q4H PRN PRN PRN Reason: SBP > 160 Sodium Chloride () 1,000 mls @ 125 mls/hr IV .Q8H [facility] Last Admin: 05/19/20 01:27 Dose: 125 mls/hr Documented by: Magnesium Hydroxide (Magnesium Hydroxide 30 Ml Udc) 30 ml PO DAILY PRN PRN PRN Reason: Constipation Meclizine HCl (Meclizine Hcl 25 Mg Tablet) 25 mg PO Q6 [facility] Last Admin: 05/19/20 05:51 Dose: 25 mg Documented by: Ondansetron HCl (Ondansetron 4 Mg/2 Ml Vial) 4 mg IV Q8H PRN PRN PRN Reason: NAUSEA/VOMITING Pantoprazole Sodium (Pantoprazole Sodium 40 Mg Tablet) 40 mg PO DAILY PRN PRN PRN Reason: GERD Prochlorperazine Edisylate (Prochlorperazine 10 Mg/2 Ml Vial) 5 mg IV Q4H PRN PRN PRN Reason: Breakthrough nausea/vomiting Last Admin: 05/18/20 17:24 Dose: 5 mg Documented by: Psyllium Hydrophilic Mucilloid (Psyllium 1 Packet) 1 packet PO DAILY PRN PRN PRN Reason: Constipation Senna/Docusate Sodium (Senna/Docusate Sodium 1 Tablet) 2 tablet PO BID PRN PRN PRN Reason: Constipation Sodium Chloride (0.9% Saline Lock 10 Ml Syringe) 10 - 40 ml IV UD PRN PRN Reason: SALINE FLUSH Last Admin: 05/18/20 17:25 Dose: 10 ml Documented by: Temazepam (Temazepam 15 Mg Capsule) 15 mg PO QHS PRN PRN PRN Reason: INSOMNIA Throat Lozenges (Benzocaine/Menthol 1 Lozenge) 1 lozenge MUCOUS MEM Q2H PRN PRN PRN Reason: SORE THROAT Discharge Diet: No Restrictions Discharge Activity: Return to Normal Activity Call your doctor if you observe: Shortness of breath, Dizziness, Fainting spells, Chest pain Home Medications: Medications to take at Discharge Omeprazole 40 mg PO DAILY PRN PRN 02/03/19 Meclizine HCl [Antivert] 25 mg PO Q6 PRN #30 tab 05/19/20 Ondansetron HCl [Zofran] 4 mg PO Q8H PRN #20 tab 05/19/20 Following Prescriptions Were Given to Patient: Meclizine HCl [Antivert] 25 mg PO Q6 PRN #30 tab PRN Reason: Vertigo Transmission Status: Received by [id number] Ondansetron HCl [Zofran] 4 mg PO Q8H PRN #20 tab PRN Reason: Nausea Transmission Status: Received by [id number] Primary Care Physician: Melvin Moses MD [Primary Care Provider] - Please follow up with your Primary Care Physician in: 1 Week Disposition: Home Minutes spent on discharge:: 35 Patient Condition:: Stable Medical Necessity - Tobacco Use Smoking Status: Never smoker Tobacco Use: Non-smoker Meaningful Use Info Meaningful Use Diagnoses (Choose all that apply): None applicable <Vinicius Winters - Last Filed: 05/19/20 13:46> Discharge Date and Diagnosis - Primary Discharge Diagnosis Acute Problems: Active Problems Vertigo (Acute) - Secondary Discharge Diagnosis Chronic Problems: Chronic Problems GERD (gastroesophageal reflux disease) (Chronic) BPPV (benign paroxysmal positional vertigo) (Chronic) Obesity (Chronic) Hospital Course and Treatment Summary of Care Provided: This patient was seen in conjunction with Amelia STRICKLAND. I have independently interviewed and examined the patient and reviewed pertinent history, examination findings, laboratory and plan of management. I have reviewed the note and agree with the documented findings with the few additional points. In brief, patient is a 50-year-old female with history of BPPV, last episode 3 years ago admitted with sudden, severe paroxysm of vertigo, dizziness and nystagmus. MRI brain at that time in 2017 was unremarkable. Symptomatic management for vertigo was done. Physical therapy for vestibular rehab therapy. Other comorbidities as mentioned above Discharge medication reconciliation done. Discharge follow-up instructions completed. Discharge process discussed with the patient and all questions were answered to patient's satisfaction. I have discussed my assessment with [employer] APPRENTICEAmelia and orders have been reviewed. [] Objective: Seen and examined. Patient has history of PVD, previous one was in 2017 which was severe lasted for 3 to 4 days with dizziness, vertigo, loss of posture and equilibrium and nystagmus. Patient dizziness has much improved but still feels mild wobbly on walking. Physical exam General: Alert, Oriented x3, Cooperative HEENT: Atraumatic, PERRLA, EOMI, Normocephalic. No nystagmus observed. Oral: No Gingival or Mucosal Lesions/ Ulcerations Neck: Supple, No JVD, Negative Carotid Bruits Lungs: Air entry equal in bilateral lung bases. No crepitation/rhonchi Cardiovascular: Regular rate, Regular Rhythm, Normal S1, Normal S2, No murmurs Abdomen: Bowel Sounds Present, Soft, Non Tender, Non-Distended : No renal angle tenderness. No suprapubic tenderness. Extremities: No edema, Capillary Refill Less than 3 Seconds Skin: No rashes, No breakdown Musculoskeletal: No Tenderness to Palpation of Joints or Extremities Neurological: Cranial nerves II-XII grossly intact, Deep Tendon Reflexes 2+/4 and Symmetrical, Neuro grossly intact Psych/Mental Status: Normal Affect, Appropriate. - Physical Exam Vitals/I&O's: Vital Signs Temp Pulse Resp BP Pulse Ox 98.1 F 80 16 132/81 H 94 05/19/20 13:40 05/19/20 13:40 05/19/20 13:40 05/19/20 13:40 05/19/20 13:40 Oxygen Delivery Method Room Air Weight: 182 lb 15.739 oz Body Mass Index (BMI) 29.5 Intake and Output for Last 24 Hours 05/17/20 05/18/20 05/19/20 23:59 23:59 23:59 Intake Total 1200 / 1200 3427.50 / 3427.50 Output Total 0 / 0 500 / 500 Balance 1200 / 1200 2927.50 / 2927.50 Laboratory Results 05/18/20 17:59: WBC 10.6, RBC 4.54, Hgb 13.3, Hct 39.4, MCV 86.8, MCH 29.3, MCHC 33.8, RDW Std Deviation 40.6, RDW Coeff of Oscar 12.9, Plt Count 194, MPV 11.6, Immature Gran % (Auto) 0.300, Neut % (Auto) 87.6 H, Lymph % (Auto) 9.1 L, [place] % (Auto) 2.8, Eos % (Auto) 0.0, Baso % (Auto) 0.2, Absolute Neuts (auto) 9.3 H, Absolute Lymphs (auto) 0.96, Nucleated RBC % 0 05/18/20 17:59: Sodium 140, Potassium 3.8, Chloride 108 H, Carbon Dioxide 26.0, Anion Gap 6, BUN 13, Creatinine 0.69, Estim Creat Clear Calc 91.31, Est GFR (MDRD) Af Amer 116, Est GFR (MDRD) Non-Af 96, BUN/Creatinine Ratio 18.9, Glucose 101, Calcium 8.5, Total Bilirubin 0.40, AST 12 L, ALT 26, Alkaline Phosphatase 76, Total Protein 7.0, Albumin 3.5, Globulin 3.5, Albumin/Globulin Ratio 1.0 05/19/20 06:24: WBC 8.6, RBC 4.24, Hgb 12.1, Hct 37.2, MCV 87.7, MCH 28.5, MCHC 32.5, RDW Std Deviation 42.2, RDW Coeff of Oscar 13.2, Plt Count 194, MPV 11.7, Immature Gran % (Auto) 0.200, Neut % (Auto) 63.4, Lymph % (Auto) 27.8, [place] % (Auto) 8.2, Eos % (Auto) 0.2, Baso % (Auto) 0.2, Absolute Neuts (auto) 5.5, Absolute Lymphs (auto) 2.39, Nucleated RBC % 0 05/19/20 06:24: Sodium 140, Potassium 3.3 L, Chloride 111 H, Carbon Dioxide 24.0, Anion Gap 5, BUN 11, Creatinine 0.76, Estim Creat Clear Calc 81.98, Est GFR (MDRD) Af Amer 104, Est GFR (MDRD) Non-Af 86, BUN/Creatinine Ratio 14.6, Glucose 78, Calcium 8.0 L, Total Bilirubin 0.50, AST 12 L, ALT 24, Alkaline Phosphatase 65, Total Protein 6.1 L, Albumin 3.0 L, Globulin 3.1, Albumin/Globulin Ratio 1.0 Current Medications Acetaminophen (Acetaminophen 325 Mg Tablet) 650 mg PO Q6H PRN PRN PRN Reason: Pain Score 1-10/Temp > 100.7 F Al Hydroxide/Mg Hydroxide (Mag Hydrox/Al Hydrox/Simeth 30 Ml Udc) 30 ml PO Q6H PRN PRN PRN Reason: Gastric Burning Albuterol Sulfate (Albuterol 2.5 Mg/3 Ml Vial.Neb.) 2.5 mg INHALATION Q2H PRN PRN PRN Reason: Dyspnea, wheezing Guaifenesin (Guaifenesin 10 Ml Udc (200mg/10ml)) 20 ml PO Q4H PRN PRN PRN Reason: COUGH Hydralazine HCl (Hydralazine 20 Mg/Ml Vial) 10 mg IV Q4H PRN PRN PRN Reason: SBP > 160 Sodium Chloride () 1,000 mls @ 125 mls/hr IV .Q8H [facility] Last Infusion: 05/19/20 13:28 Dose: Infused Documented by: Magnesium Hydroxide (Magnesium Hydroxide 30 Ml Udc) 30 ml PO DAILY PRN PRN PRN Reason: Constipation Meclizine HCl (Meclizine Hcl 25 Mg Tablet) 25 mg PO Q6 [facility] Last Admin: 05/19/20 11:30 Dose: 25 mg Documented by: Ondansetron HCl (Ondansetron 4 Mg/2 Ml Vial) 4 mg IV Q8H PRN PRN PRN Reason: NAUSEA/VOMITING Pantoprazole Sodium (Pantoprazole Sodium 40 Mg Tablet) 40 mg PO DAILY PRN PRN PRN Reason: GERD Prochlorperazine Edisylate (Prochlorperazine 10 Mg/2 Ml Vial) 5 mg IV Q4H PRN PRN PRN Reason: Breakthrough nausea/vomiting Last Admin: 05/18/20 17:24 Dose: 5 mg Documented by: Psyllium Hydrophilic Mucilloid (Psyllium 1 Packet) 1 packet PO DAILY PRN PRN PRN Reason: Constipation Senna/Docusate Sodium (Senna/Docusate Sodium 1 Tablet) 2 tablet PO BID PRN PRN PRN Reason: Constipation Sodium Chloride (0.9% Saline Lock 10 Ml Syringe) 10 - 40 ml IV UD PRN PRN Reason: SALINE FLUSH Last Admin: 05/18/20 17:25 Dose: 10 ml Documented by: Temazepam (Temazepam 15 Mg Capsule) 15 mg PO QHS PRN PRN PRN Reason: INSOMNIA Throat Lozenges (Benzocaine/Menthol 1 Lozenge) 1 lozenge MUCOUS MEM Q2H PRN PRN PRN Reason: SORE THROAT OBSV E&M: 64375 Observation care discharge
[2020-05-19 13:40] VITALS: BP 132/81; PULSE 80; RESP 16; TEMP 36.7; O2SAT 94
== END 2020-05-19 14:24 | disposition home or self-care (01) ==
LOC: ED 15:44 → MS3 16:16
PROVIDERS: Admitting Provider Family Medicine; Emergency Provider Emergency Medicine; PCP Family Medicine; Visit Provider Internal Medicine
DX: H81.10 Benign paroxysmal vertigo, unspecified ear (principal); E66.9 Obesity, unspecified; K21.9 Gastro-esophageal reflux disease without esophagitis; Z79.899 Other long term (current) drug therapy; Z68.33 Body mass index [BMI] 33.0-33.9, adult; R03.0 Elevated blood-pressure reading, without diagnosis of hypertension
CPT/HCPCS: 36415; 80053; 85025; 96361; 96374; 96375; 96376; 97162; 99218; 99251; 99285; J7030; A4216; G0378; G0463; J2405